=== PATIENT | male | born 1980 | race African-American/Black ===

== ENCOUNTER 2024-08-06 14:38 | Emergency (ER) | payer MEDICAID ==
[~2024-08-06] VITALS: Ht 180.3 cm; Wt 118.0 kg
[2024-08-06 14:46] VITALS: O2SAT 99
[2024-08-06 15:10] VITALS: TEMP 36.9
[2024-08-06] MEDS: CLONIDINE 0.1MG TABLET PO ONE (15:25)
[2024-08-06] MEDS ORDERED: HYDRALAZINE 20MG/ML VIAL IV ONE (16:00)
[2024-08-06 16:03] LABS: BASOPHILS % 0.4 % (0.0-2.0); EOSINOPHILS % 1.4 % (0.0-5.0); HEMATOCRIT. 41.3 % (42.0-52.0); HEMOGLOBIN. 13.6 g/dL (14.0-18.0); LYMPHOCYTES % 22.6 % (20.0-50.0); MEAN PLATELET VOLUME 8.5 fl (7.4-10.4); MONOCYTES % 7.6 % (2.0-8.0); PLATELET 338 x1000/uL (130-400); RED BLOOD CELL COUNT 4.86 mill/uL (4.7-6.1); RED CELL DISTRIBUTION WIDTH 14.2 % (11.6-14.6); WHITE BLOOD COUNT 9.4 x1000/uL (4.5-11.0)
[2024-08-06 16:08] LABS: CHLORIDE 103 mEq/L (98-107); POTASSIUM 3.1 mEq/L (3.5-5.1); SODIUM 140 mEq/L (136-145)
[2024-08-06 16:10] LABS: CARBON DIOXIDE 29 mEq/L (21-32)
[2024-08-06 16:15] LABS: CREATININE 0.9 mg/dL (0.6-1.3); GLUCOSE 96 mg/dL (70-105); UREA NITROGEN BLOOD 10 mg/dL (9-23)
[2024-08-06 16:17] LABS: TROPONIN I HIGH SENSITIVITY 21 ng/L (3.0-53)
[2024-08-06] MEDS: HYDRALAZINE HCL 25MG TABLET PO ONE (16:35)
[2024-08-06] MEDS ORDERED: LABETALOL 5MG/ML 4ML INJ IV ONE (17:15)
[2024-08-06] MEDS: POTASSIUM CHLORIDE 20MEQ TABLET SR PO ONE (17:34)
[2024-08-06] MEDS ORDERED: AMLO10TA80 MT (17:39)
[2024-08-06] MEDS: AMLODIPINE 10MG TABLET PO ONE (18:06)
[2024-08-06] MEDS: AMLODIPINE 5MG TABLET PO NR (18:06)
[2024-08-06 18:45] VITALS: BP 160/109; PULSE 99; RESP 19; O2SAT 100
== END 2024-08-06 18:51 | disposition home or self-care (01) ==
LOC: ER 14:38
DX: I10 Essential (primary) hypertension (principal); F84.0 Autistic disorder
CPT/HCPCS: 36415; 71045; 80048; 84484; 85025; 93005; 99285